=== PATIENT | male | born 1965 | race Caucasian/White ===

== ENCOUNTER 2020-08-12 08:00 | Outpatient (CLI) | payer OTHER ==
--- NOTE | 2020-08-12 09:26 | ULT ---
EXAM: US Abdominal CLINICAL HISTORY: Abdominal distention. Chronic kidney disease.. COMPARISON: None. FINDINGS: Limitation: Bowel gas and body habitus Pancreas: Obscured by bowel gas IVC: Obscured by bowel gas Aorta: Proximal aorta is grossly unremarkable. The remainder the aorta is obscured by bowel gas. Liver:Increased echogenicity liver which may be due to hepatic steatosis or hepatocellular disease. S ubsequent limited evaluation for hepatic masses and intrahepatic biliary dilatation. Right hepatic lobe measures 20.6 cm Gallbladder: No sonographic evidence of cholelithiasis, gallbladder wall thickening or pericholecysti c fluid. Horowitz's sign:Negative CBD: Suboptimal evaluation Portal vein: Patent. Appropriate directional flow. Right kidney: Normal cortical echotexture. No hydronephrosis Right kidney measuring 7.0 x 5.6 x 6.3 cm in length. Left kidney: Normal cortical echotexture. No hydronephrosis. Possible nonobstructing 0.5 cm calculus in the lower pole cortex. Left kidney measuring 11.8 x 6.6 x 6.7 cm in length Spleen: Normal echotexture. Calcific granulomas. 12.9 cm maximum dimension. IMPRESSION: 1. Limited evaluation. 2. Hepatomegaly. Hepatic steatosis versus hepatocellular disease. Additional imaging if clinically wa rranted 3. Sonographic evidence of cholelithiasis, cholecystitis. 4. Suboptimal evaluation the common bile duct.
== END 2020-08-12 08:01 | disposition home or self-care (01) ==
LOC: SCSULT 08:00
PROVIDERS: ATTEND Internal Medicine Nephrology
DX: N18.30 Chronic kidney disease, stage 3 unspecified (principal); R16.0 Hepatomegaly, not elsewhere classified; K80.10 Calculus of gallbladder with chronic cholecystitis without obstruction
CPT/HCPCS: 93975

== ENCOUNTER 2023-12-26 15:21 | Emergency (ER) | payer OTHER | END 2023-12-26 17:41 | disposition home or self-care (01) | LOC: ERS 15:21 | DX: L03.116 Cellulitis of left lower limb (principal); L03.115 Cellulitis of right lower limb; L25.9 Unspecified contact dermatitis, unspecified cause; I10 Essential (primary) hypertension | CPT/HCPCS: 99282 ==

== ENCOUNTER 2024-01-15 18:07 | Emergency (ER) | payer OTHER | END 2024-01-15 18:56 | disposition home or self-care (01) | LOC: ERS 18:07 | DX: L03.113 Cellulitis of right upper limb (principal); L03.114 Cellulitis of left upper limb; I10 Essential (primary) hypertension | CPT/HCPCS: 99282 ==

== ENCOUNTER 2024-03-14 14:57 | Emergency (ER) | payer OTHER ==
[2024-03-14] MEDS ORDERED: Dexamethasone 10 MG/ML VIAL ONE (16:52)
[2024-03-14 18:36] LABS: #Basophils 0.04 10x3/uL (0.0-0.2); %Basophils 0.4 % (0.0-1.0); %Eosinophils 2.4 % (0.0-10.0); %Lymphocytes 27.3 % (21.0-51.0); %Monocytes 10.8 % (0.0-10.0); %Neutrophils 58.7 % (42.0-75.0); Hematocrit 45.9 % (42.0-52.0); Hemoglobin 15.1 g/dL (14.0-18.0); Mean Corpuscular HGB CONC 32.9 g/dL (32.0-36.0); Mean Corpuscular Hemoglobin 31.7 pg (27.0-31.0); Mean Corpuscular Volume 96.4 fL (78.0-98.0); Mean Platelet Volume 10.2 fL (7.4-10.4); Platelet Count 249 10x3/uL (130-400); RBC Distribution Width 14.6 % (11.5-14.5); Red Blood Cell (RBC) Count 4.76 mill/uL (4.70-6.10)
[2024-03-14 18:49] LABS: ALT (SGPT) 41 U/L (8-55); AST (SGOT) 26 U/L (5-34); Albumin 3.8 g/dL (3.4-4.8); Alkaline Phosphatase 58 U/L (40-110); Anion Gap 17 mmol/L (10-20); BUN (Urea Nitrogen) 23 mg/dL (8.4-25.7); Bilirubin, Total 0.8 mg/dL (0.2-1.2); Calc. Creatinine Clearance 0 mL/min (70-130); Calcium 9.7 mg/dL (7.8-10.44); Carbon Dioxide 25 mmol/L (23-31); Chloride 104 mmol/L (98-107); Estimated GFR 51; Globulin 4.3 g/dL (2.4-3.5); Glucose 97 mg/dL (80-115); Potassium 4.5 mmol/L (3.5-5.1); Protein, Total 8.1 g/dL (5.8-8.1); Sodium 141 mmol/L (136-145)
== END 2024-03-14 17:11 | disposition home or self-care (01) ==
LOC: ERS 14:57
DX: L03.113 Cellulitis of right upper limb (principal); L25.9 Unspecified contact dermatitis, unspecified cause; M10.9 Gout, unspecified; I10 Essential (primary) hypertension; Z76.0 Encounter for issue of repeat prescription
CPT/HCPCS: 80053; 84550; 85025; 96374; J1100